=== PATIENT | female | born 1955 | race Hispanic/Latino ===

== ENCOUNTER 2020-10-10 12:41 | Emergency (ER) | payer MEDICARE ==
[2020-10-10 13:17] LABS: #Basophils 0.1 thou/uL (0.0-0.2); #Eosinphils 0.2 thou/uL (0.0-0.7); #Monocytes 0.4 thou/uL (0.11-0.59); #Neutrophils 2.9 thou/uL (1.40-6.50); %Basophils 1.2 % (0.0-1.0); %Eosinophils 2.8 % (0.0-10.0); %Monocytes 7.6 % (0.0-10.0); %Neutrophils 52.4 % (42.0-75.0); Hemoglobin 13.9 g/dL (12.0-16.0); Mean Corpuscular HGB CONC 33.1 g/dL (32.0-36.0); Mean Corpuscular Hemoglobin 30.2 pg (27.0-31.0); Mean Corpuscular Volume 91.3 fL (78.0-98.0); Mean Platelet Volume 8.9 fL (7.4-10.4); Platelet Count 171 thou/uL (130-400); Red Blood Cell (RBC) Count 4.61 mill/uL (4.20-5.40); White Blood Cell (WBC) Count 5.6 thou/uL (4.8-10.8)
[2020-10-10] MEDS ORDERED: Iopamidol-370 76% 500 ML 1 ML ONE (13:29)
[2020-10-10] MEDS ORDERED: Metoclopramide HCl 10 MG/2 ML VIAL ONE (13:33)
[2020-10-10] MEDS ORDERED: diphenhydrAMINE 50 MG/ML VIAL ONE (13:33)
[2020-10-10] MEDS ORDERED: Acetaminophen 500 MG TAB ONE (13:33)
[2020-10-10 13:43] LABS: ALT (SGPT) 12 U/L (8-55); AST (SGOT) 14 U/L (5-34); Alkaline Phosphatase 87 U/L (40-110); Anion Gap 12 mmol/L (10-20); BUN (Urea Nitrogen) 16 mg/dL (9.8-20.1); Bilirubin, Total 0.4 mg/dL (0.2-1.2); Calc. Creatinine Clearance 0 mL/min (70-130); Calcium 9.3 mg/dL (7.8-10.44); Carbon Dioxide 27 mmol/L (23-31); Chloride 108 mmol/L (98-107); Glucose 98 mg/dL (80-115); Potassium 4.4 mmol/L (3.5-5.1); Sodium 143 mmol/L (136-145)
--- NOTE | 2020-10-10 15:04 | CT ---
CT ANGIOGRAM OF BRAIN WITH AND WITHOUT CONTRAST: DATE: 10/10/2020 2:25 PM HISTORY: 65-year-old female with headache and brain aneurysm COMPARISON: CT the brain without contrast dated June 26, [address] of the head with and without contrast dated May 26, 2020 TECHNIQUE: Noncontrast brain CT performed. Bolus chasing technique scan performed through the head. Coronal and sagittal 3-D MIP reconstructions. FINDINGS: NONCONTRAST CT OF BRAIN: Hemorrhage: None Ischemia/Infarction: There is progressive encephalomalacia involving the large left MCA distribution infarct with more prominent encephalomalacia involving the left temporal lobe, left parietal lobe and posterior left frontal lobe. 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 Midline Shift: None. Hydrocephalus: None. Skull and Extracranial Soft tissues: Normal. CTA OF THE BRAIN: Right ICA: Patent. Right MCA: Patent. Right HEIDI: Patent. ACOM: Patent. Left ICA: Patent. Left MCA: There are endovascular coils involving the excluded M2 branch aneurysm. The M1 segment is patent. Left HEIDI: Patent. PCOMs: Patent. Vertebral arteries: Patent. Basilar Artery: Patent. animal treatment investigator: Patent. Incidentals: None. IMPRESSION: 1. Stable excluded left M2 branch aneurysm 2. 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 3. No new hemodynamically significant stenosis, occlusion or aneurysmal formation is evident.
[2020-10-10 15:12] LABS: Bacteria/HPF 4+ HPF (None Seen); Bilirubin Negative (Negative); Blood, Urine Trace (Negative); Clarity Clear (Clear); Glucose, Urine (Dipstick) Normal (Negative); Ketone, Urine Negative (Negative); Leukocyte Negative Leu/uL (Negative); Nitrite Negative (Negative); Protein, Urine (Dipstick) Negative (Neg-Trace); RBC/HPF 0-3 HPF (0-3); Specific Gravity, Urine 1.014 (1.002-1.036); Squamous Epithelial 0-3 HPF (0-3); Urobilinogen Normal mg/dL (Less than 2); WBC/HPF 0-3 HPF (0-3)
== END 2020-10-10 16:13 | disposition home or self-care (01) ==
LOC: ERS 12:41
DX: R51.9 Headache, unspecified (principal); I25.2 Old myocardial infarction; E11.9 Type 2 diabetes mellitus without complications; F41.9 Anxiety disorder, unspecified; Z79.899 Other long term (current) drug therapy
CPT/HCPCS: 70496; 80053; 81003; 81015; 84484; 85025; 93005; 96365; 96366; 96375; J1200; J2765; Q9967

== ENCOUNTER 2021-01-23 13:35 | Outpatient (CLI) | payer MEDICARE ==
[2021-01-23 13:46] LABS: Hemoglobin 12.5 g/dL (12.0-15.5); Mean Corpuscular HGB CONC 32.4 g/dL (32.0-36.0); Mean Corpuscular Hemoglobin 30.1 pg (27.0-33.0); Platelet Count 220 10x3/uL (150-450); RBC Distribution Width 12.5 % (11.5-14.5); Red Blood Cell (RBC) Count 4.15 10x6/uL (3.90-5.03); White Blood Cell (WBC) Count 6.1 10x3/uL (3.5-10.5)
[2021-01-23 14:01] LABS: Anion Gap 15 mmol/L (10-20); BUN (Urea Nitrogen) 16 mg/dL (9.8-20.1); Calc. Creatinine Clearance 0 mL/min (70-130); Calcium 8.9 mg/dL (7.8-10.44); Carbon Dioxide 24 mmol/L (23-31); Chloride 108 mmol/L (98-107); Glucose 120 mg/dL (80-115); Potassium 4.5 mmol/L (3.5-5.1); Sodium 142 mmol/L (136-145)
[2021-01-24 01:16] LABS: SARS-CoV-2 PCR by NAA Not Detected (NotDetected)
== END 2021-01-23 13:36 | disposition home or self-care (01) ==
LOC: LABBT 13:35
PROVIDERS: ATTEND Neurological Surgery
DX: Z01.812 Encounter for preprocedural laboratory examination (principal); Z20.822 Contact with and (suspected) exposure to COVID-19; I67.1 Cerebral aneurysm, nonruptured
CPT/HCPCS: 80048; 85027; U0003; U0005; 87635

== ENCOUNTER 2021-01-28 08:07 | Day surgery (SDC) | payer MEDICARE ==
[2021-01-27 10:36] VITALS: BMI 29.3
[2021-01-28] MEDS ORDERED: Heparin 10,000 UNITS/ 10 ML VIAL ONE (08:36)
[2021-01-28] MEDS ORDERED: Lidocaine 1% (PF) 30 ML VIAL ONE (08:36)
[2021-01-28] MEDS ORDERED: Iopamidol 370 76% 50 ML VIAL FS ONE (08:44)
== END 2021-01-28 12:53 | disposition home or self-care (01) ==
LOC: SDC 08:07
PROVIDERS: ATTEND Neurological Surgery
PROC: 03HJ3DZ Insertion of Intraluminal Device into Left Common Carotid Artery, Percutaneous Approach (ICD-10-PCS; principal; 2021-01-28)
DX: I67.1 Cerebral aneurysm, nonruptured (principal); Z79.82 Long term (current) use of aspirin; Z79.84 Long term (current) use of oral hypoglycemic drugs; Z79.899 Other long term (current) drug therapy; Z98.890 Other specified postprocedural states
CPT/HCPCS: 36223; J1644; J2001; Q9967